=== PATIENT | female | born 1950 | race Caucasian/White ===

== ENCOUNTER 2024-01-16 10:30 | Outpatient (RCR) | payer OTHER, SELFPAY | END 2024-05-15 23:59 | disposition home or self-care (01) | PROVIDERS: Visit Provider Family Medicine | DX: M79.604 Pain in right leg (principal); M79.605 Pain in left leg; R26.9 Unspecified abnormalities of gait and mobility; R26.81 Unsteadiness on feet; Z51.89 Encounter for other specified aftercare | CPT/HCPCS: 97110; 97112; 97140; 97161 ==